=== PATIENT | female | born 1965 | race African-American/Black ===

== ENCOUNTER 2017-06-18 00:39 | Emergency (ER) | payer SELFPAY ==
[~2017-06-18] VITALS: Ht 165.1 cm; Wt 73.0 kg
[2017-06-18] MEDS ORDERED: TRAMADOL 50MG TABLET PO NR (02:00)
[2017-06-18 02:10] VITALS: BP 147/82
== END 2017-06-18 02:33 | disposition home or self-care (01) ==
LOC: ER 00:53
DX: B02.9 Zoster without complications (principal); E78.00 Pure hypercholesterolemia, unspecified; I10 Essential (primary) hypertension; E11.9 Type 2 diabetes mellitus without complications; Z98.890 Other specified postprocedural states
CPT/HCPCS: 99283

== ENCOUNTER 2019-12-15 03:46 | Emergency (ER) | payer OTHER ==
[~2019-12-15] VITALS: Ht 162.6 cm; Wt 74.0 kg
[2019-12-15] MEDS ORDERED: KETOROLAC 30MG/ML VIAL IM ONE (04:15)
[2019-12-15 04:47] VITALS: BP 150/80
== END 2019-12-15 04:55 | disposition home or self-care (01) ==
LOC: ER 03:46
DX: M54.5 Low back pain (principal); G89.29 Other chronic pain
CPT/HCPCS: 96372; 99283; J1885